=== PATIENT | female | born 1995 | race American Indian/Alaskan Native ===

== ENCOUNTER 2021-05-09 20:01 | Emergency (ER) | payer SELFPAY ==
[2021-05-09 20:26] VITALS: BP 122/66
[2021-05-09] MEDS ORDERED: AMOXICILLIN/K CLAV 875/125MG TAB PO ONE (21:38)
[2021-05-09] MEDS ORDERED: BUTALB/ACETAMINOPHEN/CAFFEINE TAB PO ONE (21:38)
[2021-05-09] MEDS ORDERED: IBUPROFEN 600 MG TAB PO ONE (21:38)
--- NOTE | 2021-05-09 21:47 | Emergency Department Report ---
- General Chief Complaint: Extremity Injury, Upper Stated Complaint: L SHOULDER/EAR PAIN Source: EMS Mode of arrival: Stretcher Limitations: No Limitations - History of Present Illness Initial Comments: Patient is a 26-year-old -[place] female with a history of iron deficiency anemia, anxiety and depression who presented to the ED with complaint of acute onset persistent bilateral ear pain, worse in the left ear with tinnitus, nasal and sinus congestion, frontal sinus pressure and headache for the last 1 week, worse in the last 2 days. Patient denies dizziness, syncope, nausea and vomiting, change in vision, hearing loss, traumatic injury, cough, sore throat, diarrhea, dysuria, urinary frequency and urgency, chest pain or shortness of breath, fever and chills. MD Complaint: cough, rhinorrhea, nasal congestion, sinus pain, other (LEFT EAR) -: Sudden, week(s) (1) Severity: severe Severity scale (0 -10): 8 Quality: sharp, aching Consistency: constant Improves With: nothing Worsens With: nothing Associated Symptoms: denies other symptoms, rhinorrhea, nasal congestion, sore throat, cough, ear pain (LEFT). denies: fever, chills, myalgias, diaphoresis, headache, stiff neck, chest pain, shortness of breath, abdominal pain, nausea, vomiting, diarrhea, dysuria, rash, confusion, right sweats, weight loss Treatments Prior to Arrival: none - Related Data Previous Rx's Medication Instructions Recorded Last Taken Type Amoxicillin/Potassium Clav 1 each PO Q12H #20 tab 05/09/21 Unknown Rx [Augmentin 875-125 Tablet] Butalb/Acetamin/Caff 50-325-40 2 tab PO Q6HR PRN #15 tab 05/09/21 Unknown Rx [Fioricet 50-325-40] Cetirizine HCl [Zyrtec 10mg tab] 10 mg PO DAILY #30 tab 05/09/21 Unknown Rx Ibuprofen [Motrin] 800 mg PO Q8HR PRN #30 tablet 05/09/21 Unknown Rx Allergies Allergy/AdvReac Type Severity Reaction Status Date / Time No Known Allergies Allergy Verified 05/09/21 20:26 ED Review of Systems ROS: Stated complaint: L SHOULDER/EAR PAIN Other details as noted in HPI Constitutional: denies: chills, fever, malaise, weakness, other Eyes: denies: eye pain, eye discharge, vision change ENT: ear pain (LEFT EAR PAIN), congestion. denies: throat pain, dental pain, hearing loss Respiratory: cough. denies: shortness of breath, wheezing Cardiovascular: denies: chest pain, palpitations Endocrine: no symptoms reported Gastrointestinal: denies: abdominal pain, nausea, vomiting, diarrhea Genitourinary: denies: urgency, dysuria, frequency, hematuria, discharge, abnormal menses, dyspareunia, other Musculoskeletal: denies: back pain, joint swelling, arthralgia Skin: denies: rash, lesions Neurological: denies: headache, weakness, paresthesias Psychiatric: denies: anxiety, depression Hematological/Lymphatic: denies: easy bleeding, easy bruising ED Past Medical Hx - Past Medical History Previous Medical History?: Yes Hx Psychiatric Treatment: Yes (DEPRESSION) Additional medical history: ANXIETY, ANEMIA - Surgical History Past Surgical History?: No - Medications Home Medications: Home Medications Medication Instructions Recorded Confirmed Last Taken Type Amoxicillin/Potassium Clav 1 each PO Q12H #20 tab 05/09/21 Unknown Rx [Augmentin 875-125 Tablet] Butalb/Acetamin/Caff 50-325-40 2 tab PO Q6HR PRN #15 tab 05/09/21 Unknown Rx [Fioricet 50-325-40] Cetirizine HCl [Zyrtec 10mg tab] 10 mg PO DAILY #30 tab 05/09/21 Unknown Rx Ibuprofen [Motrin] 800 mg PO Q8HR PRN #30 tablet 05/09/21 Unknown Rx ED Physical Exam - General Limitations: No Limitations General appearance: alert, in no apparent distress - Head Head exam: Present: atraumatic, normocephalic, normal inspection - Eye Eye exam: Present: normal appearance, PERRL, EOMI Pupils: Present: normal accommodation - ENT ENT exam: Present: normal orophraynx, mucous membranes moist, other (Mild erythematous bulging bilateral tympanic membranes with effusion; grossly congested nasal passages; palpable frontal sinus tenderness) - Neck Neck exam: Present: normal inspection, full ROM. Absent: tenderness, lymphadenopathy - Respiratory Respiratory exam: Present: normal lung sounds bilaterally. Absent: respiratory distress, wheezes, rales, rhonchi, chest wall tenderness, accessory muscle use, decreased breath sounds - Cardiovascular Cardiovascular Exam: Present: regular rate, normal rhythm, normal heart sounds. Absent: systolic murmur, diastolic murmur, rubs, gallop - GI/Abdominal GI/Abdominal exam: Present: soft, normal bowel sounds. Absent: tenderness, guarding, rebound, hyperactive bowel sounds, hypoactive bowel sounds, organomegaly - Extremities Exam Extremities exam: Present: normal inspection, full ROM, normal capillary refill - Back Exam Back exam: Present: normal inspection, full ROM. Absent: tenderness, CVA tenderness (R), CVA tenderness (L), muscle spasm, paraspinal tenderness, verte bral tenderness - Neurological Exam Neurological exam: Present: alert, oriented X3, CN II-XII intact, normal gait, reflexes normal - Psychiatric Psychiatric exam: Present: normal affect, normal mood - Skin Skin exam: Present: warm, dry, intact, normal color. Absent: rash ED Course Vital Signs 05/09/21 20:25 Temperature 98.6 F Pulse Rate 72 Respiratory 18 Rate Blood Pressure 122/66 [Left] O2 Sat by Pulse 99 Oximetry ED Medical Decision Making - Medical Decision Making This is a 26-year-old -[place] female with a history of iron deficiency anemia, anxiety and depression who presented to the ED with complaint of acute onset persistent bilateral ear pain, worse in the left ear with tinnitus, nasal and sinus congestion, frontal sinus pressure and headache for the last 1 week, worse in the last 2 days. In the ED, patient is alert and oriented x3 and is not in distress. Patient was treated in the ED for pain, and on reevaluation, patient's pain is well controlled medications. Patient will discharge home on medications and advised to follow-up with her primary care physician in 7 to 10 days for reevaluation. Patient was advised return to the ED immediately if symptoms get worse. - Differential Diagnosis Sinusitis; otitis media; URI; rhinitis Critical care attestation.: If time is entered above; I have spent that time in minutes in the direct care of this critically ill patient, excluding procedure time. ED Disposition Clinical Impression: Acute upper respiratory infection, Acute otitis media with effusion of both ears Acute frontal sinusitis Qualifiers: Recurrence: non-recurrent Qualified Code(s): J01.10 - Acute frontal sinusitis, unspecified Disposition: 01 HOME / SELF CARE / HOMELESS Is pt being admited?: No Does the pt Need Aspirin: No Condition: Stable Instructions: Otitis Media, Adult, [id number], Sinusitis, Adult, [id number], Upper Respiratory Infection, Adult, [id number], Cough, Adult, [id number] Additional Instructions: Take medication with food, drink plenty of fluids and follow-up with your primary care physician in 7 to 10 days for reevaluation. Return to the ED immediately if symptoms get worse. Prescriptions: Amoxicillin/Potassium Clav [Augmentin 875-125 Tablet] 1 each PO Q12H #20 tab Butalb/Acetamin/Caff 50-325-40 [Fioricet 50-325-40] 2 tab PO Q6HR PRN #15 tab PRN Reason: Headache Ibuprofen [Motrin] 800 mg PO Q8HR PRN #30 tablet PRN Reason: Pain , Severe (7-10) Cetirizine HCl [Zyrtec 10mg tab] 10 mg PO DAILY #30 tab Referrals: [facility] [Provider Group] - 7-10 days Time of Disposition: 21:46 Print Language: YEMENI
== END 2021-05-09 23:40 | disposition home or self-care (01) ==
LOC: ED 20:01
DX: J06.9 Acute upper respiratory infection, unspecified (principal); H65.93 Unspecified nonsuppurative otitis media, bilateral; J01.10 Acute frontal sinusitis, unspecified; F41.9 Anxiety disorder, unspecified
CPT/HCPCS: 99283